=== PATIENT | male | born 1955 | race Hispanic/Latino ===

== ENCOUNTER → 2021-06-21 | Outpatient (CLI) | payer OTHER ==
[~2021-06-21] MED LIST: ATOR40TA71 PO; LEVO500T90 PO; LIDOCAINE HCL 4% LTA SOL 4 ML VIAL TP ONE; LISI20TA24 PO; LORA0.5T83 PO; METF-445 PO; QUET400T13 PO
== END ==
LOC: WHH 10:28
PROVIDERS: ATTEND Family Medicine
DX: S51.002A Unspecified open wound of left elbow, initial encounter (principal); L02.818 Cutaneous abscess of other sites; E11.628 Type 2 diabetes mellitus with other skin complications; I10 Essential (primary) hypertension; E78.5 Hyperlipidemia, unspecified; E78.00 Pure hypercholesterolemia, unspecified; F39 Unspecified mood [affective] disorder; F10.10 Alcohol abuse, uncomplicated; F19.10 Other psychoactive substance abuse, uncomplicated; F17.210 Nicotine dependence, cigarettes, uncomplicated; Z90.49 Acquired absence of other specified parts of digestive tract; Z98.890 Other specified postprocedural states; Z79.84 Long term (current) use of oral hypoglycemic drugs; Z79.4 Long term (current) use of insulin; Z79.899 Other long term (current) drug therapy; W19.XXXA Unspecified fall, initial encounter; Y93.89 Activity, other specified; Y92.89 Other specified places as the place of occurrence of the external cause; Y99.8 Other external cause status
CPT/HCPCS: A4450; G0463

== ENCOUNTER 2022-12-21 18:05 | Emergency (ER) | payer OTHER ==
[~2022-12-21] VITALS: Ht 182.9 cm; Wt 88.0 kg
[~2022-12-21 18:05] MED LIST changes: +LEVO-70 PO; -LEVO500T90 PO; -LIDOCAINE HCL 4% LTA SOL 4 ML VIAL TP ONE
[2022-12-21 19:17] VITALS: BP 96/64; PULSE 71; RESP 20
== END 2022-12-21 20:18 | disposition left against medical advice (07) ==
LOC: EDH 18:05
DX: R53.1 Weakness (principal); R03.1 Nonspecific low blood-pressure reading; Z53.21 Procedure and treatment not carried out due to patient leaving prior to being seen by health care provider

== ENCOUNTER 2024-04-05 10:46 | Emergency (ER) | payer OTHER ==
[~2024-04-05] VITALS: Ht 182.9 cm; Wt 77.1 kg
[~2024-04-05 10:46] MED LIST changes: +ADV250 IH; +ATOR10 PO; -ATOR40TA71 PO; +CALC-1009 PO; +CYAN25002 SL; +DULO60CA64 PO; +GLUC1TAB61 PO; +HYDR25 PO; -LEVO-70 PO; -LISI20TA24 PO; -LORA0.5T83 PO; +LOSA-418 PO; +MAGN250T10 PO; +METF-444 PO; -METF-445 PO; +NIFE-40 PO; +OMEG100033 PO; +OMEP20CA12 PO; +PRED20TA3 PO; +QUET400T PO; -QUET400T13 PO; +THIA100T75 PO
--- NOTE | 2024-04-05 11:09 | ERN ---
General Chief Complaint: Weakness Stated Complaint: GBW Time Seen by MD: 10:48 Source: patient, EMS History of Present Illness Initial Comments PATIENT IS A 68-YEAR-OLD MALE COMING IN TO BE EVALUATED FOR GENERALIZED BODY WEAKNESS. PATIENT STATES THAT THIS HAPPENED SHORTLY AFTER DEFECATING. HE STATES HE WAS CONSTIPATED FOR ABOUT NINE STARTED TAKING SEVERAL BOUTS OF LAXATIVE AND HAD A LARGE BOWEL MOVEMENT. HE STATES THAT SHORTLY AFTER THAT HE FELT WEAK AND SHE WAS BROUGHT IN. PATIENT WAS TRANSFERRED VIA EMS AND RECEIVED SOME IV FLUIDS HE STATES STARTED FEEL BETTER WITH IV FLUIDS. Allergies: Coded Allergies: Penicillins (Verified Allergy, Unknown, 03/30/24) DOES NOT RECALL WHEN HE WAS 1 YRS OLD HE HAD AN ALLERGY WAS TOLD BY HIS MOTHER. Home Meds Active Scripts Fluticasone/Salmeterol (ADVAIR 250-50 DISKUS) 14 Inh/Disk Inh, 1 PUFF IH BID for 30 Days, #1 EACH 0 Refills Prov:MELISSA MALDONADO MD 03/31/24 Prednisone (Prednisone) 20 Mg Tablet, 40 MG PO DAILY for 7 Days, #7 TAB Prov:MELISSA MALDONADO MD 03/31/24 Nifedipine (Nifedipine ER) 30 Mg Tab.er.24, 30 MG PO BID, #60 TAB 0 Refills Prov:MELISSA MALDONADO MD 03/31/24 Losartan Potassium (Cozaar) 50 Mg Tablet, 50 MG PO BID, #60 TAB 0 Refills Prov:MELISSA MALDONADO MD 03/31/24 Hydralazine HCl (Apresoline) 25 Mg Tab, 25 MG PO TID, #90 TAB 0 Refills Prov:MELISSA MALDONADO MD 03/31/24 Reported Medications Cyanocobalamin (Vitamin B-12) (Vitamin B-12) 2,500 Mcg Tab.subl, 1 TAB SL DAILY for 30 Days, #30 TAB 0 Refills 03/29/24 Calcium Carb & Cit/Vitamin D3 (Calcium + D3 ER Tablet) 600MG-12.5 Tablet.er, 1 EACH PO DAILY, TAB 03/29/24 Glucosamine/[place] A (Glucosamine-Chondroitin Tab) 500 Mg-400 Mg Tablet, 1 EACH PO AD, TAB 03/29/24 Thiamine Mononitrate (Vitamin B-1) 100 Mg Tablet, 1 TAB PO DAILY for 30 Days, #30 TAB 0 Refills 03/29/24 Magnesium Oxide (Magnesium) 250 Mg Tablet, 1 TAB PO DAILY for 30 Days, #30 TAB 0 Refills 03/29/24 Zullinger-3/Dha/Epa/Fish Oil (Fish Oil 1,000 mg Softgel) 1,000 Mg (120 Mg-180 Mg) Capsule, 1 CAP PO BID for 30 Days, #60 CAP 0 Refills 03/29/24 Omeprazole (Omeprazole) 20 Mg Capsule.dr, 1 CAP PO DAILY for 30 Days, #30 CAP 0 Refills 03/29/24 Duloxetine HCl (Duloxetine HCl) 60 Mg Capsule.dr, 1 CAP PO DAILY for 30 Days, #3 0 CAP 0 Refills 03/29/24 Metformin HCl (Metformin HCl) 500 Mg Tablet, 1 TAB PO DAILY for 30 Days, #60 TAB 0 Refills 03/29/24 Quetiapine Fumarate (Seroquel) 400 Mg Tablet, 1 TAB PO BID for 30 Days, #30 TAB 0 Refills 03/29/24 Atorvastatin Calcium (LIPITOR) 20 Mg Tab, 1 TAB PO HS for 30 Days, #30 TAB 0 Refills 03/29/24 Discontinued Reported Medications Clonidine HCl (Clonidine HCl) 0.2 Mg Tablet, 1 TAB PO BID for 30 Days, #60 TAB 0 Refills 03/29/24 Quetiapine Fumarate (Quetiapine Fumarate) 400 Mg Tablet, 1 TAB PO BID 06/10/21 Metformin HCl (Metformin HCl) 850 Mg Tablet, 1 TAB PO BID 06/10/21 Lorazepam (Ativan) 0.5 Mg Tablet, 0.5 MG PO TID PRN for ANXIETY/AGITATION 06/10/21 Atorvastatin Calcium (Atorvastatin Calcium) 40 Mg Tablet, 1 TAB PO HS 06/10/21 Discontinued Scripts Lisinopril (Lisinopril) 20 Mg Tablet, 20 MG PO DAILY, #30 TAB 0 Refills Prov:BONNIE GARCIAPCNP 06/12/21 Levofloxacin (Levofloxacin) 500 Mg Tablet, 500 MG PO DAILY, #7 TAB 0 Refills Prov:BONNIE GARCIAPCNP 06/12/21 Past Medical History Past Medical History: Diabetes-Type II, Other Medical History Other: FIBROSIS Past Surgical History: Appendectomy Family History Family History: Negative Social History Social History: Drugs, ETOH ROS Dictation CONSTITUTIONAL: NO CHILLS, NO FEVER, NO WEAKNESS, NO DIAPHORESIS, NO MALAISE. HEAD/FACE: NO SIGNS OF TRAUMA. EENT: NO EYE PAIN, NO BLURRED VISION, NO TEARING, NO DOUBLE VISION, NO EAR PAIN, NO EAR DISCHARGE, NO NOSE PAIN, NO NASAL CONGESTION, NO THROAT PAIN, NO THROAT SWELLING, NO MOUTH PAIN. RESPIRATORY: NO COUGH, NO ORTHOPNEA, NO SOB, NO STRIDOR, NO WHEEZING. CARDIOVASCULAR: NO CHEST PAIN, NO EDEMA, NO PALPITATIONS, NO SYNCOPE. GASTROINTESTINAL/ABDOMINAL: NO ABDOMINAL PAIN, NO CONSTIPATION, NO DIARRHEA, NO NAUSEA, NO VOMITING. GENITOURINARY: NO ABNORMAL DISCHARGE, NO DYSURIA, NO FREQUENT URINATION, NO HEMATURIA. NO COMPLAINTS OF PAIN IN THE GENITALS. MUSCULOSKELETAL: NO BACK PAIN, NO GOUT, NO JOINT PAIN, NO JOINT SWELLING, NO MUSCLE PAIN, NO MUSCLE STIFFNESS, NO NECK PAIN. INTEGUMENTARY: NO CHANGE IN COLOR, NO CHANGE IN HAIR/NAILS, NO DRYNESS, NO LESION, NO LUMPS, NO RASH. NEUROLOGICAL/PSYCH: NO ANXIETY, NOT DEPRESSED, NO EMOTIONAL PROBLEM, NO HEADACHE, NO NUMBNESS, NO PRE-EXISTING DEFICIT, NO HISTORY OF SEIZURES, NO TREMORS, NO WEAKNESS. HEMATOLOGIC/LYMPHATIC: NOT ANEMIC, NO HISTORY OF BLOOD CLOTS, NO APPARENT BLEEDING, NO BRUISING, GLANDS NOT SWOLLEN. ALL SYSTEMS NEGATIVE, EXCEPT NOTED. Physical Exam Physical Exam Dictation VITAL SIGNS: REVIEWED. GENERAL APPEARANCE: ALERT, ORIENTED X3, NO ACUTE DISTRESS, OBESE. HEAD AND FACE: NON-TRAUMATIC. EYES: PERRL, PINK CONJUNCTIVAS, EYELID NO TRAUMA, ANTERIOR CHAMBER CLEAR. EARS: PINNAS INTACT AND NO SIGNS OF TRAUMA OR ERYTHEMA. EAR CANALS CLEAR AND NO DISCHARGE. TMS NO ERYTHEMA. NOSE: NO DISCHARGE, NO BLEEDING. OROPHARYNX: MOUTH NORMAL, TEETH NO CARIES, TONGUE PINK. PHARYNX CLEAR, NO ERYTHEMA. TONSILS NO EXUDATES, NO ABSCESSES NOTED. MUCOUS MEMBRANE MOIST. NECK: SUPPLE, NON-TENDER, NO THYROMEGALY, NO MASSES, NO JVD, NO BRUITS. BREAST: DEFERRED. CHEST: NO TENDERNESS, NO CREPITUS, NO PARADOXICAL MOVEMENT, NO RETRACTIONS. LUNGS: CLEAR, WELL-VENTILATED, SYMMETRIC, NO RALES, NO WHEEZING, NO RHONCHI, NO STRIDOR, GOOD BREATH SOUNDS BILATERALLY. HEART: REGULAR RATE, REGULAR RHYTHM, NO MURMUR, NO GALLOPS. VASCULAR: NO PERIPHERAL EDEMA. ABDOMEN: SOFT, POSITIVE BOWEL SOUNDS, NONDISTENDED, NO GUARDING, NONTENDER, NO REBOUND, NO MASSES NO HEPATOMEGALY, NO SPLENOMEGALY, NO DUARTE'S SIGN, NO HERNIA S. RECTAL: DEFERRED. GENITAL: DEFERRED. NEUROLOGICAL: NORMAL SPEECH, GROSS MOTOR FUNCTION INTACT, GROSS SENSORY FUNCTION INTACT. MUSCULOSKELETAL: NECK NONTENDER, FULL RANGE OF MOTION, BACK NONTENDER, FULL RANGE OF MOTION. EXTREMITIES: NONTENDER, FULL RANGE OF MOTION. SKIN: COLOR PINK, DRY, NO TURGOR, NO RASH, NO LACERATIONS, NO ABRASIONS, NO CONTUSIONS. LYMPHATICS: DEFERRED. Results Laboratory and Microbiology Lab and Micro Result Laboratory Tests Test 04/05/24 11:32 White Blood Count 9.1 K/uL (4.8-10.8) Red Blood Count 4.19 MIL/uL (4.50-6.20) L Hemoglobin 11.8 g/dL (14.0-18.0) L Hematocrit 34.6 % (42-54) L Mean Corpuscular Volume 82.6 fL (79-99) Mean Corpuscular Hemoglobin 28.2 pg (27.0-33.0) Mean Corpuscular Hemoglobin Concent 34.1 g/dL (32.0-36.0) Red Cell Distribution Width 13.9 % (11.0-15.5) Platelet Count 216 K/uL (130-400) Mean Platelet Volume 8.4 fL (7.5-10.5) Immature Granulocyte % (Auto) 1.6 % (0-1) H Neutrophils (%) (Auto) 84.2 % (40.0-77.0) H Lymphocytes (%) (Auto) 5.6 % (21.0-51.0) L Monocytes (%) (Auto) 8.0 % (3.0-13.0) Eosinophils (%) (Auto) 0.4 % (0.0-8.0) Basophils (%) (Auto) 0.2 % (0.0-5.0) Neutrophils # (Auto) 7.7 K/uL (1.8-7.7) Lymphocytes # (Auto) 0.5 K/uL (1.0-4.8) L Monocytes # (Auto) 0.7 K/uL (0.1-1.0) Eosinophils # (Auto) 0.04 K/uL (0.00-0.70) Basophils # (Auto) 0.02 K/uL (0.00-0.20) Absolute Immature Granulocyte (auto 0.15 K/uL (0-1) Nucleated Red Blood Cells 0.0 % (0.0-0.19) Prothrombin Time 10.4 SEC (9.6-11.6) Prothromb Time International Ratio <= 0.93 (0.85-1.15) Activated Partial Thromboplast Time 26.8 SEC (26.3-35.5) Sodium Level 126 mmol/L (136-145) L Potassium Level 3.7 mmol/L (3.5-5.1) Chloride Level 95 mmol/L (101-111) L Carbon Dioxide Level 26 mmol/L (21-32) Blood Urea Nitrogen 20 mg/dL (7-18) H Creatinine 1.1 mg/dL (0.5-1.3) Glomerular Filtration Rate Calc 73 mL/min (>90) Random Glucose 140 mg/dL (70-105) H Total Calcium 8.4 mg/dL (8.5-10.1) L Magnesium Level 2.00 mg/dL (1.80-2.40) Total Creatine Kinase 52 U/L (21-232) # Troponin I High Sensitivity 9 ng/L (4-75) B-Type Natriuretic Peptide 8 pg/mL (0-100) Labs Reviewed?: Yes EKG/XRAY/US/CT/MRI EKG Comment 04/05/2024 TIME 10:59 A.M. VENTRICULAR RATE 91 SINUS RHYTHM [place] [address] WAVE ELEVATION OR DEPRESSION X-RAY Comment CHEST [id number] FIBROSIS NAD MDM MDM: DIFFERENTIAL DIAGNOSIS: DEHYDRATION, GASTROENTERITIS, GASTRITIS, WEAKNESS PATIENT IS A 68-YEAR-OLD MALE COMING IN TO BE EVALUATED FOR GENERALIZED BODY WEAKNESS. PATIENT STATES HE HAS HISTORY OF PULMONARY FIBROSIS AND STATES HE HAS BEEN HAD AN ABDOMINAL DISCOMFORT HE HAD BEEN DIAGNOSED WITH CONSTIPATION GIVEN MEDICATION FOR THAT HE SAID IT WAS NOT WORKING UNTIL ABOUT A DAY AGO WHERE HE HAS A BIG BOWEL MOVEMENT HE STATES THAT THAT CAUSED HIM TO HAVE WEAKNESS. UPON EVALUATION IN ER PATIENT IS A RECEIVED IV FLUIDS VIA EMS AND IN THE ER AND STATES HE FEELS MUCH BETTER. LABORATORY WORKUP I WILL DEHYDRATION. PATIENT WILL BE DISCHARGED IN STABLE CONDITION. ED Course Orders Procedure Category Date Status Time Cbc With Differential LAB 04/05/24 Complete 10:55 Prothrombin Time With LAB 04/05/24 Complete INR 10:55 B-Type Natriuretic LAB 04/05/24 Complete Peptide 10:55 Chest 1vw RAD 04/05/24 Taken 10:55 12 Lead Ekg Tracing- EKG 04/05/24 Logged Technical 10:55 Lactated Ringers PHA 04/05/24 Complete 1000ml (Lactated 11:00 Magnesium LAB 04/05/24 Complete 10:55 Creatine Kinase, Total LAB 04/05/24 Complete 10:55 Troponin I High LAB 04/05/24 Complete Sensitivity 10:55 Urinalysis Profile LAB 04/05/24 Logged 10:55 Partial LAB 04/05/24 Complete Thromboplastin Time 10:55 Basic Metabolic Panel LAB 04/05/24 Complete 10:55 Current Medications Medications (Trade) Dose Ordered Sig/Myles Route PRN Reason Start Time Stop Time Status Last Admin Dose Admin Lactated Ringer's 1,000 ml @ 0 mls/hr ONCE ONCE IV 04/05/24 11:00 04/05/24 11:01 DC 04/05/24 11:34 Vital Signs Date Time Temp Pulse Resp B/P (MAP) Pulse Ox O2 Delivery O2 Flow Rate FiO2 04/05/24 11:41 98.8 92 18 126/64 98 Room Air* 0 21 04/05/24 10:48 93 17 123/65 95 Room Air 0 DX & DISP Disposition: Discharge Departure Impression: Primary Impression: Dehydration Additional Impression: Anxiety Condition: Stable Additional Instructions: FOLLOW-UP WITH PRIMARY CARE PROVIDER IN 1 TO 2 DAYS. TAKE MEDICATIONS DIRECTED HERE IN THE EMERGENCY ROOM. OKAY TO CONTINUE HOME MEDICATIONS UNLESS OTHERWISE DISCUSSED DURING YOUR VISIT IN THE EMERGENCY ROOM TODAY. RETURN TO YOUR NEAREST EMERGENCY ROOM IF SYMPTOMS WORSEN OR IF THERE IS NO IMPROVEMENT. CALL 911 IF YOU NEED IMMEDIATE ASSISTANCE. TAKE TYLENOL [id number] NEEDED AND IF NO CONTRAINDICATIONS ARE PRESENT. INCREASE ORAL HYDRATION. A WOUND CULTURE OR URINE CULTURE WAS ORDERED HERE IN THE EMERGENCY ROOM DEPARTMENT PLEASE FOLLOW-UP WITH PRIMARY CARE PROVIDER AND ADVISE THEM TO GET REPEAT PORTS FROM OUR FACILITY. IF YOU HAD ANY TARA WRAP/SPLINTS THAT WERE APPLIED HERE, PLEASE DO NOT REMOVE THEM UNTIL YOU SEE YOUR PRIMARY CARE OR SPECIALTY. REFERRALS: Referrals: ARIEL ROQUE (PCP) Time of Disposition: 12:59 MYRANDA BANSAL MD Apr 05, 2024 11:09
[2024-04-05] MEDS: LACTATED RINGERS 1000ML 1,000 ML IV ONE (11:34)
[2024-04-05 11:40] LABS: BASOPHILS # (AUTO) 0.02 K/uL (0.00-0.20); BASOPHILS % (AUTO) 0.2 % (0.0-5.0); EOSINOPHILS # (AUTO) 0.04 K/uL (0.00-0.70); EOSINOPHILS % (AUTO) 0.4 % (0.0-8.0); HEMATOCRIT 34.6 % (42-54); IMMATURE GRANULOCYTE ABSOLUTE 0.15 K/uL (0-1); LYMPHOCYTES # (AUTO) 0.5 K/uL (1.0-4.8); LYMPHOCYTES % (AUTO) 5.6 % (21.0-51.0); MEAN CORPUSCULAR HEMOGLOBIN 28.2 pg (27.0-33.0); MEAN CORPUSCULAR HGB CONC 34.1 g/dL (32.0-36.0); MEAN CORPUSCULAR VOLUME 82.6 fL (79-99); MONOCYTES # (AUTO) 0.7 K/uL (0.1-1.0); NEUTROPHILS # (AUTO) 7.7 K/uL (1.8-7.7); NEUTROPHILS % (AUTO) 84.2 % (40.0-77.0); PLATELET COUNT (AUTO) 216 K/uL (130-400); RED BLOOD CELL COUNT(AUTO) 4.19 MIL/uL (4.50-6.20); RED CELL DISTRIBUTION WIDTH 13.9 % (11.0-15.5); WHITE BLOOD COUNT (AUTO) 9.1 K/uL (4.8-10.8)
[2024-04-05 11:55] LABS: CREATININE 1.1 mg/dL (0.5-1.3); POTASSIUM 3.7 mmol/L (3.5-5.1)
[2024-04-05 11:58] LABS: INR <= 0.93 (0.85-1.15); PROTHROMBIN TIME 10.4 SEC (9.6-11.6)
[2024-04-05 11:59] LABS: PARTIAL THROMBOPLASTIN TIME 26.8 SEC (26.3-35.5)
[2024-04-05 12:23] LABS: B-TYPE NATRIURETIC PEPTIDE 8 pg/mL (0-100)
--- NOTE | 2024-04-05 12:58 | HMCIMG ---
CHEST 1VW HISTORY: Weakness COMPARISON: 03/31/2024 FINDINGS: A frontal projection of the chest was obtained. There are bilateral pulmonary infiltrates suggestive of pulmonary vascular congestion with possible superimposed pneumonitis. The heart is borderline enlarged. Degenerative changes are seen. No evidence of aortic calcification is seen. IMPRESSION: 1. Bilateral pulmonary infiltrates are seen suggestive of pulmonary vascular congestion with possible superimposed pneumonitis.
[2024-04-05 13:04] VITALS: BP 121/60; PULSE 88; RESP 20; TEMP 98.1; O2SAT 97
--- NOTE | 2024-04-06 05:15 | EKG ---
[facility] Test Date: 2024-04-05 Test Time: 10:59:51 Pat Name: LILLIAN LAMAS Department: EDH Room: Gender: M Director Of Oncology: [facility] : 1955 Requested By: MYRANDA BANSAL Order Number: [id number] Reading MD: Sameer Crow Measurements Intervals [place] Rate: 91 P: 74 HI: 155 QRS: 85 QRSD: 87 T: 56 QT: 346 QTc: 427 Interpretive Statements Sinus rhythm Compared to ECG 03/29/2024 10:01:12 Sinus tachycardia no longer present Electronically Signed On 04-07-2024 21:27:56 EQUITIES TRADER by Sameer Crow Please click the below link to view image of tracing.
== END 2024-04-05 13:04 | disposition home or self-care (01) ==
LOC: EDH 10:46
DX: E86.0 Dehydration (principal); F41.9 Anxiety disorder, unspecified; E11.9 Type 2 diabetes mellitus without complications; E83.42 Hypomagnesemia; K70.40 Alcoholic hepatic failure without coma; Z79.51 Long term (current) use of inhaled steroids; Z79.52 Long term (current) use of systemic steroids; Z79.84 Long term (current) use of oral hypoglycemic drugs; Z79.899 Other long term (current) drug therapy; Z88.0 Allergy status to penicillin; Z90.49 Acquired absence of other specified parts of digestive tract
CPT/HCPCS: 99285; 82550; 83735; 84484; 80048; 83880; 85025; 85610; 85730; 36415; 71045; 96360; 93005; J7120